=== PATIENT | male | born 1960 | race Hispanic/Latino ===

== ENCOUNTER 2022-11-11 20:05 | Emergency (ER) | payer OTHER, BC ==
[~2022-11-11] VITALS: Ht 154.9 cm; Wt 74.8 kg
[2022-11-11 20:30] VITALS: O2SAT 98
[2022-11-11] MEDS ORDERED: TETANUS/DIPHTHERIA TOX ADULT 0.5 ML SYR ONE (20:43)
[2022-11-11] MEDS ORDERED: TETANUS/DIPHTHERIA TOX ADULT 0.5 ML SYR IM ONE (20:45)
[2022-11-11] MEDS ORDERED: BACITRACIN ZINC 0.9GM TP ONE (21:31)
[2022-11-11] MEDS ORDERED: DOXYCYCLINE HY100 MG PO (21:49)
[2022-11-11] MEDS ORDERED: NAPROSYN500 MG PO (21:49)
== END 2022-11-11 22:00 | disposition home or self-care (01) ==
LOC: FSED 20:08
DX: S61.243A Puncture wound with foreign body of left middle finger without damage to nail, initial encounter (principal); W26.8XXA Contact with other sharp object(s), not elsewhere classified, initial encounter; Y93.89 Activity, other specified; Y92.838 Other recreation area as the place of occurrence of the external cause; I10 Essential (primary) hypertension
CPT/HCPCS: 90471; 90714; 99283